=== PATIENT | male | born 1980 | race African-American/Black ===

== ENCOUNTER 2021-08-18 17:35 | Emergency (ER) | payer BC ==
[2021-08-18 18:10] VITALS: BP 124/79; PULSE 84; TEMP 98.2; BMI 25.5
[2021-08-18 20:19] LABS: PH,URINE 6.5 (5.0-8.0); URINE APPEARANCE CLEAR; URINE BILIRUBIN NEGATIVE (NEGATIVE); URINE COLOR YELLOW; URINE GLUCOSE (UA) NEGATIVE (NEGATIVE); URINE KETONE NEGATIVE (NEGATIVE); URINE LEUK ESTERASE NEGATIVE (NEGATIVE); URINE NITRITE NEGATIVE (NEGATIVE); URINE PROTEIN NEGATIVE (NEGATIVE); URINE UROBILINOGEN 0.2 mg/dL (0.2-1.0)
[2021-08-18 20:34] LABS: ALBUMIN 4.2 g/dl (3.4-5.0); CALCIUM 9.4 mg/dL (8.5-10.1)
[2021-08-18 20:35] LABS: BLOOD UREA NITROGEN 19.4 mg/dL (7-18)
[2021-08-18 20:38] LABS: CREATININE 1.2 mg/dL (0.55-1.3)
[2021-08-18 20:39] LABS: BILIRUBIN,TOTAL 0.4 mg/dL (0.2-1); TOT PROT 7.5 g/dl (6.4-8.2)
[2021-08-19 14:07] LABS: SARS-CoV-2 NAA Not Detected (Not Detected)
== END 2021-08-18 22:24 | disposition home or self-care (01) ==
LOC: JER 17:35
DX: R05.9 Cough, unspecified (principal); I34.1 Nonrheumatic mitral (valve) prolapse; R74.01 Elevation of levels of liver transaminase levels
CPT/HCPCS: 36415; 71046-TC-FY; 80053; 81003; 82550; 82553; 99284-25; C9803-CS; U0003; U0005